=== PATIENT | male | born 1945 | race Caucasian/White ===

== ENCOUNTER 2017-02-01 10:11 | Emergency (ER) | payer OTHER ==
--- NOTE | 2017-02-01 10:44 | EDPHY ---
H & P Time Seen by Provider: 02/01/17 10:23 HPI/ROS: CHIEF COMPLAINT: Left leg swelling HISTORY OF PRESENT ILLNESS: Patient has had bilateral ankle swelling for about a week and then today at 2:00 a.m. had a left leg cramping noticed his left leg was markedly more swollen than the right and presents to the ER. Worse with movement or palpation. Radiates a little bit of to his knee and thigh. Not associated with chest pain or shortness of breath. REVIEW OF SYSTEMS: Eye: no change in vision ENT: no sore throat Cardiac: no chest pain or syncope Pulmonary: no cough or SOB Abdomen: no vomiting, diarrhea, abdominal pain Musculoskeletal: HPI Skin: Patient is had itchy left feliz an still has some scabs from about a month ago when he was scratching it. Neuro: no headache Constitutional: no fever : no urinary symptoms A comprehensive 10 point review of systems is otherwise negative aside from elements mentioned in the history of present illness. PAST MEDICAL HISTORY: Pneumothorax, pneumonia, gout. Social history: Recently but and new sports car which is been making it difficult to get in and out. Brother with DVT. General Appearance: Alert and conversant, cooperative. Eyes: No scleral icterus. ENT, Mouth: Normal mucous membranes. Respiratory: Normal respiratory effort, breath sounds equal, lungs are clear to auscultation. Cardiovascular: Regular rate and rhythm. Normal dorsalis pedis pulse in the left leg. Gastrointestinal: Abdomen is soft and non tender. Neurological: Alert and oriented x3. Normally conversant. Face symmetric, normal movement and sensation in all extremities. Normal motor and sensory in the left foot. Skin: Slight erythema and warmth of the left lower leg from the ankle to proximal calf with abrasion and healing scab anterior feliz. No discharge or pus. No crepitus or fluctuance. No eschar. No lymphangitis. Musculoskeletal: Left lower extremity swelling from proximal calf to ankle. No bony tenderness of the feliz. Normal range of motion of the knee and ankle. No bony tenderness. Psychiatric: Not agitated. Emergency Department course/MDM: Differential includes but not limited to Cardozo cyst, cellulitis, DVT. Plan for ultrasound and CBC. 1140: Results discussed, plan to treat with oral Bactrim and Keflex for possible left leg cellulitis. Afebrile, normal white blood cell count, compartments are soft. Patient states he is comfortable with this plan. He tells me he has no known allergies to any medications. Smoking Status: Former smoker Constitutional: Initial Vital Signs Temperature (C) 36.4 C 02/01/17 10:17 Heart Rate 92 02/01/17 10:17 Respiratory Rate 17 02/01/17 10:17 Blood Pressure 119/95 H 02/01/17 10:17 O2 Sat (%) 94 02/01/17 10:17 O2 Delivery Mode Room Air Allergies/Adverse Reactions: No Known Allergies Allergy (Unverified 02/01/17 11:46) Home Medications: Medication Instructions Recorded Cephalexin [Keflex] 500 mg PO QID #40 cap 02/01/17 Sulfamethox/Tmp 800/160 mg 1 tab PO BID@1000,2200 #20 tab 02/01/17 [Bactrim Ds] Medical Decision Making - Diagnostics Imaging Results: Imaging Impressions Extremity Venous Study 02/01/17 10:32 Impression: No deep venous thrombosis left leg. Findings and recommendations discussed with Emergency Department physician, SURINDER DONNELLY at 11:28 hour, 02/01/2017. Final report concurs with initial preliminary interpretation. Ultrasound per Dr. Valverde at 11:20 a.m. shows edema but no DVT in the left leg. Differential Diagnosis: Differential considered including but not limited to arterial occlusion, DVT, Cardozo cyst, cellulitis, compartment syndrome, fracture. - Data Points Laboratory Results: Laboratory Results 02/01/17 10:40 02/01/17 10:40 02/01/17 02/01/17 10:40 10:40 WBC 9.04 10^3/uL 10^3/uL (3.80-9.50) RBC 5.11 10^6/uL 10^6/uL (4.40-6.38) Hgb 14.4 g/dL g/dL (13.7-17.5) Hct 43.4 % % (40.0-51.0) MCV 84.9 fL fL (81.5-99.8) MCH 28.2 pg pg (27.9-34.1) MCHC 33.2 g/dL g/dL (32.4-36.7) RDW 13.7 % % (11.5-15.2) Plt Count 243 10^3/uL 10^3/uL (150-400) MPV 9.1 fL fL (8.7-11.7) Neut % (Auto) 72.0 % % (39.3-74.2) Lymph % (Auto) 18.3 % % (15.0-45.0) [place] % (Auto) 8.2 % % (4.5-13.0) Eos % (Auto) 0.8 % % (0.6-7.6) Baso % (Auto) 0.4 % % (0.3-1.7) Nucleat RBC Rel Count 0.0 % % (0.0-0.2) Absolute Neuts (auto) 6.51 10^3/uL H 10^3/uL (1.70-6.50) Absolute Lymphs (auto) 1.65 10^3/uL 10^3/uL (1.00-3.00) Absolute Monos (auto) 0.74 10^3/uL 10^3/uL (0.30-0.80) Absolute Eos (auto) 0.07 10^3/uL 10^3/uL (0.03-0.40) Absolute Basos (auto) 0.04 10^3/uL 10^3/uL (0.02-0.10) Absolute Nucleated RBC 0.00 10^3/uL 10^3/uL (0-0.01) Immature Gran % 0.3 % % (0.0-1.1) Immature Gran # 0.03 10^3/uL 10^3/uL (0.00-0.10) Sodium 139 mEq/L mEq/L (134-144) Potassium 4.3 mEq/L mEq/L (3.5-5.2) Chloride 106 mEq/L mEq/L (97-110) Carbon Dioxide 21 mEq/l L mEq/l (22-31) Anion Gap 12 mEq/L mEq/L (8-16) BUN 16 mg/dL mg/dL (7-23) Creatinine 0.9 mg/dL mg/dL (0.7-1.3) Estimated GFR > 60 Glucose 94 mg/dL mg/dL (70-100) Calcium 9.1 mg/dL mg/dL (8.5-10.4) Medications Given: Discontinued Medications Cephalexin HCl (Keflex) 500 mg PO EDNOW ONE PRN Reason: Protocol Stop: 02/01/17 11:50 Last Admin: 02/01/17 11:51 Dose: 500 mg Trimethoprim/Sulfamethoxazole (Bactrim Ds) 1 ea PO EDNOW ONE PRN Reason: Protocol Stop: 02/01/17 11:50 Last Admin: 02/01/17 11:51 Dose: 1 ea Departure - Departure Disposition: Home, Routine, Self-Care Clinical Impression: Left leg cellulitis Condition: Good Instructions: Cellulitis (ED) Referrals: BASILIO MILLIGAN [Primary Care Provider] - As per Instructions Prescriptions: Cephalexin [Keflex] 500 mg PO QID #40 cap Sulfamethox/Tmp 800/160 mg [Bactrim Ds] 1 tab PO BID@1000,2200 #20 tab
[2017-02-01 10:55] LABS: % IMMATURE GRANULYOCYTES 0.3 % (0.0-1.1); ABSOLUTE IMMATURE GRANULOCYTES 0.03 10^3/uL (0.00-0.10); ADD DIFF? NO; ADD MORPH? NO; ADD SCAN? NO; ATYPICAL LYMPHOCYTE FLAG 10 (0-99); FRAGMENT RBC FLAG 0 (0-99); HEMATOCRIT 43.4 % (40.0-51.0); HEMOGLOBIN 14.4 g/dL (13.7-17.5); LEFT SHIFT FLG 10 (0-99); LIPEMIA HEMOLYSIS FLAG 80 (0-99); MEAN CELL HEMOGLOBIN 28.2 pg (27.9-34.1); MEAN CELL HEMOGLOBIN CONCENTR. 33.2 g/dL (32.4-36.7); MEAN CELL VOLUME 84.9 fL (81.5-99.8); MEAN PLATELET VOLUME 9.1 fL (8.7-11.7); PLATELET CLUMPS FLAG 0 (0-99); PLATELET COUNT 243 10^3/uL (150-400); RED BLOOD CELL COUNT 5.11 10^6/uL (4.40-6.38); RED CELL DISTRIBUTION WIDTH 13.7 % (11.5-15.2)
[2017-02-01 11:06] LABS: ANION GAP 12 mEq/L (8-16); CALCIUM 9.1 mg/dL (8.5-10.4); CARBON DIOXIDE 21 mEq/l (22-31); CHLORIDE 106 mEq/L (97-110); CREATININE 0.9 mg/dL (0.7-1.3); GLOMERULAR FILTRATION RATE > 60; GLUCOSE 94 mg/dL (70-100); POTASSIUM 4.3 mEq/L (3.5-5.2); SODIUM 139 mEq/L (134-144)
[2017-02-01] MEDS ORDERED: SULFAMETHOX/TMP 800/160 MG 1 TAB PO ONE (11:49)
[2017-02-01] MEDS ORDERED: CEPHALEXIN 500 MG CAP PO ONE (11:49)
[2017-02-01 12:06] VITALS: BP 154/86; PULSE 81; RESP 16; TEMP 97.9; O2SAT 98
== END 2017-02-01 12:02 | disposition home or self-care (01) ==
DX: L03.116 Cellulitis of left lower limb (principal)

== ENCOUNTER 2017-02-17 12:06 | Emergency (ER) | payer OTHER ==
[2017-02-17 12:12] VITALS: PULSE 96
--- NOTE | 2017-02-17 13:02 | EDPHY ---
HPI/HX/ROS/PE/MDM Narrative: CHIEF COMPLAINT: Swollen left calf HPI: This patient is a 71 year old male complaining of left calf swelling. He was seen here 02/01/17, two weeks ago, for similar symptoms and diagnosed with cellulitis. He has completed a course of Keflex and Bactrim. He felt that he was improving but over the weekend, his left calf became "tight as a drum" and his foot became more swollen as well. His knee became very painful to walk on, especially while going up and don stairs. He feels this pain is in the center of his knee. He has seen his primary care provider, Dr. Milligan, for continued follow up and called today for an appointment but the triage nurse recommended he present to the Emergency Department for continued evaluation. The patient feels his lower left extremity looks similar to his original presentation on 02/01. At that time he had similar symptoms in his thigh as well, which he feels have resolved. His outpatient workup has involved cardiac evaluation and podiatry. He recently began taking daily baby aspirin, carvedilol, and rosuvastatin. REVIEW OF SYSTEMS: Aside from elements discussed in the HPI, a comprehensive 10-point review of systems was reviewed and is negative. PMH: Pneumothorax, Gout, pna. SOCIAL HISTORY: Lives in [place]. . Retired. PHYSICAL EXAM: General:Patient is alert, in no acute distress. ENT:Eyes are normal to inspection. ENT inspection normal. Neck: Normal inspection. Full range of motion. Respiratory:No respiratory distress. Breath sounds normal bilaterally. Cardiovascular: Regular rate and rhythm. Strong peripheral pulses. Normal cap refill. Abdomen:The abdomen is nontender to palpation. There are no peritoneal signs. There are normal bowel sounds. Back: Normal to inspection. No tenderness to palpation. Skin: Normal color. No rash. Warm and dry. Extremities: 1+ pedal edema right leg. 2+ pitting pedal edema left leg. Normal warmth. Scattered areas of erythema. A few well healed blisters to medial aspect. Full range of motion. Neuro: Oriented x3. Normal motor function. Normal sensory function. Portions of this note were transcribed by an ED scribe. I personally performed the history, physical exam, and medical decision making; and confirm the accuracy of the information in the transcribed note. ED Course: 71 year old male presenting with left lower extremity swelling. Plan for US left leg. Plan for labs including CBC, BMP, and troponin. Additional labs including c-reactive protein, BNP. 14:[address] Stark, radiologist. US left leg shows no evidence of deep vein thrombosis. 17:[address] Stark, radiologist. CT abdomen shows no visible etiology for the patient's lower extremity swelling. Plan to discharge home in good condition. The patient will continue to follow up with his primary care provider. Return precautions discussed. The patient is comfortable with this plan. MDM: This patient presents with his second ED visit for somewhat isolated LLE swelling. He previously had a negative US for DVT and was diagnosed with cellulitis. We performed an extensive workup here in the ED today. US is again negative for DVT, and CTAP is negative for any pelvic mass that could be obstructing venous return. The patient has a normal WBC, ESR and essentially a normal CRP, as well as lack of fever, so I think cellulitis is unlikely in this patient. I offered him empiric antibiotics but he agrees that he would like to avoid this unless absolutely necessary. The etiology of his asymmetric swelling is unclear. There is no evidence of ARF or liver failure, nor CHF exacerbation. I think the patient would benefit from continued compression stocking use and close follow-up with his PCP. - Data Points Imaging Results: Imaging Impressions Extremity Venous Study 02/17/17 13:21 Impression: No evidence of deep vein thrombosis. Findings discussed with Sonido Quiroz MD 02/17/2017 at 14:34. Abdomen CT 02/17/17 15:40 Impression: 1. No visible etiology for the patient's lower extremity swelling. 2. Ectasia of the infrarenal abdominal aorta, with moderate atherosclerosis. 3. 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 4. Diverticulosis, without evidence of diverticulitis. 5. Additional findings, as above. Findings discussed with Sonido Quiroz M.D., on February 17, 2017 at 1703. Laboratory Results: Laboratory Results 02/17/17 15:52 02/17/17 13:50 02/17/17 02/17/17 02/17/17 15:52 15:52 13:50 WBC RBC Hgb Hct 40.8 % % (40.0-51.0) MCV MCH MCHC RDW Plt Count MPV Neut % (Auto) Lymph % (Auto) [place] % (Auto) Eos % (Auto) Baso % (Auto) Nucleat RBC Rel Count Absolute Neuts (auto) Absolute Lymphs (auto) Absolute Monos (auto) Absolute Eos (auto) Absolute Basos (auto) Absolute Nucleated RBC Immature Gran % Immature Gran # ESR 11 MM/HR MM/HR (0-20) Sodium 139 mEq/L mEq/L (134-144) Potassium 4.3 mEq/L mEq/L (3.5-5.2) Chloride 107 mEq/L mEq/L (97-110) Carbon Dioxide 24 mEq/l mEq/l (22-31) Anion Gap 8 mEq/L mEq/L (8-16) BUN 20 mg/dL mg/dL (7-23) Creatinine 0.9 mg/dL mg/dL (0.7-1.3) Estimated GFR > 60 Glucose 76 mg/dL mg/dL (70-100) Calcium 9.1 mg/dL mg/dL (8.5-10.4) Troponin I < 0.012 ng/mL ng/mL (0-0.034) C-Reactive Protein 10.3 mg/L H mg/L (<10.0) NT-Pro-B Natriuret Pep 792 pg/mL H pg/mL (0-125) 02/17/17 13:50 WBC 7.24 10^3/uL 10^3/uL (3.80-9.50) RBC 4.78 10^6/uL 10^6/uL (4.40-6.38) Hgb 13.3 g/dL L g/dL (13.7-17.5) Hct 40.5 % % (40.0-51.0) MCV 84.7 fL fL (81.5-99.8) MCH 27.8 pg L pg (27.9-34.1) MCHC 32.8 g/dL g/dL (32.4-36.7) RDW 13.8 % % (11.5-15.2) Plt Count 221 10^3/uL 10^3/uL (150-400) MPV 8.7 fL fL (8.7-11.7) Neut % (Auto) 72.9 % % (39.3-74.2) Lymph % (Auto) 18.1 % % (15.0-45.0) [place] % (Auto) 7.0 % % (4.5-13.0) Eos % (Auto) 1.4 % % (0.6-7.6) Baso % (Auto) 0.3 % % (0.3-1.7) Nucleat RBC Rel Count 0.0 % % (0.0-0.2) Absolute Neuts (auto) 5.28 10^3/uL 10^3/uL (1.70-6.50) Absolute Lymphs (auto) 1.31 10^3/uL 10^3/uL (1.00-3.00) Absolute Monos (auto) 0.51 10^3/uL 10^3/uL (0.30-0.80) Absolute Eos (auto) 0.10 10^3/uL 10^3/uL (0.03-0.40) Absolute Basos (auto) 0.02 10^3/uL 10^3/uL (0.02-0.10) Absolute Nucleated RBC 0.00 10^3/uL 10^3/uL (0-0.01) Immature Gran % 0.3 % % (0.0-1.1) Immature Gran # 0.02 10^3/uL 10^3/uL (0.00-0.10) ESR Sodium Potassium Chloride Carbon Dioxide Anion Gap BUN Creatinine Estimated GFR Glucose Calcium Troponin I C-Reactive Protein NT-Pro-B Natriuret Pep General Time Seen by Provider: 02/17/17 13:00 Initial Vital Signs: Initial Vital Signs Temperature (C) 36.8 C 02/17/17 12:08 Heart Rate 96 02/17/17 12:08 Respiratory Rate 18 02/17/17 12:08 Blood Pressure 121/85 H 02/17/17 12:08 O2 Sat (%) 97 02/17/17 12:08 O2 Delivery Mode Room Air Allergies/Adverse Reactions: No Known Allergies Allergy (Unverified 02/01/17 11:46) Home Medications: Medication Instructions Recorded Aspirin [Aspirin 81mg (*)] 81 mg PO DAILY 02/17/17 Carvedilol [Coreg (*)] 3.125 mg PO 02/17/17 Rosuvastatin Calcium [Crestor 5mg] 5 mg PO 02/17/17 Departure - Departure Disposition: Home, Routine, Self-Care Clinical Impression: Leg edema, left Condition: Good Instructions: Leg Edema (ED) Additional Instructions: 1. Continue to follow up with Dr. Milligan for further evaluation of your leg swelling. 2. Return to the emergency department for fever, worsening pain, swelling, or redness, or other worsening of condition. Referrals: BASILIO MILLIGAN [Primary Care Provider] - As per Instructions Report Scribed for: Sonido Quiroz Report Scribed by: Virgie Hutchinson Date of Report: 02/17/17 Time of Report: 13:02
[2017-02-17 14:01] LABS: % IMMATURE GRANULYOCYTES 0.3 % (0.0-1.1); ABSOLUTE IMMATURE GRANULOCYTES 0.02 10^3/uL (0.00-0.10); ADD DIFF? NO; ADD MORPH? NO; ADD SCAN? NO; ATYPICAL LYMPHOCYTE FLAG 10 (0-99); FRAGMENT RBC FLAG 0 (0-99); HEMATOCRIT 40.5 % (40.0-51.0); HEMOGLOBIN 13.3 g/dL (13.7-17.5); LEFT SHIFT FLG 0 (0-99); LIPEMIA HEMOLYSIS FLAG 80 (0-99); MEAN CELL HEMOGLOBIN 27.8 pg (27.9-34.1); MEAN CELL HEMOGLOBIN CONCENTR. 32.8 g/dL (32.4-36.7); MEAN CELL VOLUME 84.7 fL (81.5-99.8); MEAN PLATELET VOLUME 8.7 fL (8.7-11.7); PLATELET CLUMPS FLAG 0 (0-99); PLATELET COUNT 221 10^3/uL (150-400); RED BLOOD CELL COUNT 4.78 10^6/uL (4.40-6.38); RED CELL DISTRIBUTION WIDTH 13.8 % (11.5-15.2)
[2017-02-17 14:18] LABS: ANION GAP 8 mEq/L (8-16); CALCIUM 9.1 mg/dL (8.5-10.4); CARBON DIOXIDE 24 mEq/l (22-31); CHLORIDE 107 mEq/L (97-110); CREATININE 0.9 mg/dL (0.7-1.3); GLOMERULAR FILTRATION RATE > 60; GLUCOSE 76 mg/dL (70-100); POTASSIUM 4.3 mEq/L (3.5-5.2); SODIUM 139 mEq/L (134-144)
[2017-02-17 14:30] LABS: TROPONIN I < 0.012 ng/mL (0-0.034)
[2017-02-17 15:30] VITALS: RESP 16
[2017-02-17] MEDS ORDERED: IOPAMIDOL (ISOVUE-300) 100 ML BTL ONE (16:18)
[2017-02-17 17:01] LABS: HEMATOCRIT 40.8 % (40.0-51.0)
[2017-02-17 17:47] VITALS: BP 149/80; TEMP 97.5; O2SAT 96
== END 2017-02-17 17:44 | disposition home or self-care (01) ==
DX: R60.0 Localized edema (principal); Z79.82 Long term (current) use of aspirin
CPT/HCPCS: 74177; 93971; 99285; Q9967

== ENCOUNTER → 2017-06-05 | Outpatient (CLI) | payer OTHER | LOC: FCPNEURO 20:00 | PROVIDERS: ATTEND Internal Medicine Sleep Medicine | DX: G47.33 Obstructive sleep apnea (adult) (pediatric) (principal) ==